=== PATIENT | female | born 2000 | race Caucasian/White ===

== ENCOUNTER 2019-02-18 00:39 | Emergency (ER) | payer OTHER ==
[~2019-02-18] VITALS: Ht 167.6 cm; Wt 60.0 kg
[2019-02-18 00:42] VITALS: Ht 167.6 cm; Wt 60.0 kg
[2019-02-18] MEDS ORDERED: OLANZAPINE 10 MG VIAL IM ONE (01:00)
[2019-02-18] MEDS ORDERED: LORAZEPAM 2 MG INJ IV ONE ×2 (01:30→05:00)
[2019-02-18] MEDS ORDERED: SOD CHLORIDE 0.9% 2,000 ML IV ONE (02:30)
[2019-02-18] MEDS ORDERED: SOD CHLORIDE 0.9% 1,000 ML IV ONE (04:30)
[2019-02-18 06:18] VITALS: BP 110/79; PULSE 75; RESP 13
== END 2019-02-18 07:15 | disposition home or self-care (01) ==
LOC: E/R 00:39
DX: F10.129 Alcohol abuse with intoxication, unspecified (principal)
CPT/HCPCS: 36415; 80048; 80053; 80307; 81003; 85025; 96372; 96374; 96376; J2060; J7030; Z7502; Z7610